=== PATIENT | male | born 1980 | race Caucasian/White ===

== ENCOUNTER 2018-06-24 02:00 | Emergency (ER) | payer OTHER ==
[~2018-06-24] VITALS: Ht 182.9 cm; Wt 102.1 kg
--- NOTE | 2018-06-24 02:10 | NUR ---
Dr. Eastman at bedside for MSE.
[2018-06-24] MEDS ORDERED: HYDROMORPHONE 1 MG/1 ML DISP.SYRIN ONE (02:26)
[2018-06-24] MEDS ORDERED: LORAZEPAM 2 MG/1 ML VIAL ONE (02:27)
[2018-06-24] MEDS ORDERED: LIDOCAINE 1%-EPI 1:100,000 20 ML VIAL TP ONE (02:30)
[2018-06-24] MEDS ORDERED: HYDROMORPHONE 1 MG/1 ML DISP.SYRIN IV ONE (02:30)
[2018-06-24] MEDS ORDERED: LORAZEPAM 2 MG/1 ML VIAL IV ONE (02:30)
[2018-06-24] MEDS ORDERED: CLINDAMYCIN HCL 150 MG CAPSULE PO ONE (02:30)
[2018-06-24] MEDS ORDERED: SODIUM BICARBONATE 4.2 % (NEUT) 5 ML VIAL TP ONE (02:30)
[2018-06-24] MEDS ORDERED: CLINDAMYCIN HCL 150 MG CAPSULE ONE (02:33)
--- NOTE | 2018-06-24 02:54 | NUR ---
Patient discharged to home in stable conditon. Written and verbal after care instructions given. Patient verbalizes understanding of instructions. Patient ambulated out of ER with steady gait, no acute signs of distress, VSS, all belongings taken, IV site discontinued.
[2018-06-24 02:56] VITALS: BP 111/81
== END 2018-06-24 02:56 | disposition home or self-care (01) ==
LOC: ER 02:03
DX: L02.212 Cutaneous abscess of back [any part, except buttock and flank] (principal); F17.290 Nicotine dependence, other tobacco product, uncomplicated; F12.10 Cannabis abuse, uncomplicated; Z88.2 Allergy status to sulfonamides; Z88.8 Allergy status to other drugs, medicaments and biological substances
CPT/HCPCS: 10060; 96374; 96375; 99283; 99406; J1170; J2060; J3490; A4663